=== PATIENT | female | born 1945 ===

== ENCOUNTER 2017-05-10 09:25 | Emergency (ER) | payer MEDICARE ==
[2017-05-10 09:55] VITALS: BMI 23.3
[2017-05-10 10:00] VITALS: BP 114/67; PULSE 85; RESP 18; O2SAT 99
--- NOTE | 2017-05-10 10:08 | ED PDOC ---
HPI: General Adult Time Seen by Provider: 05/10/17 09:31 Chief Complaint (Nursing): Anxiety Chief Complaint (Provider): Anxiety History Per: Patient History/Exam Limitations: no limitations Onset/Duration Of Symptoms: Days Have you had recent travel within the past 21 days to any of the following countries: [place], [place], [place] or [place]?: No Current Symptoms Are (Timing): Still Present Additional Complaint(s): Deann Lam, a 72 year old female, presents to the Ed with difficulty sleeping. Patient reports that she is anxious and unable to sleep due to stress of taking care of her mother who is on hospice. She reports that she visited her PMD (Dr. Solitario) yesterday and was prescribed celexa but he refused to give her sleep medication because she needed to have an EKG done and her TSH levels tested. She was given rx for these tests and came to the ED to get the tests done in hopes that she could get sleeping pills faster. Patient denies HI /SI and reports that she does not want to speak to psych today because she has follow-up on Sunday. Son in law is at bedside and agrees with this plan. Patient reports that she has no somatic complaints. Denies chest pains, palpitations and weight loss. PMD: Dr. Solitario Past Medical History Reviewed: Historical Data, Nursing Documentation, Vital Signs Vital Signs: Last Vital Signs Temp Pulse 85 05/10/17 09:53 Resp 18 05/10/17 09:53 BP 114/67 05/10/17 09:53 Pulse Ox 99 05/10/17 11:38 - Medical History PMH: Anxiety, Arthritis, GERD - Surgical History Surgical History: Cholecystectomy, (x2) - Family History Family History: States: Unknown Family Hx - Home Medications Home Medications: Ambulatory Orders Medication Instructions Recorded Ciprofloxacin HCl [Cipro] 500 mg PO BID #20 tab 12/20/14 Cephalexin [Keflex] 1 tab PO TID #15 capsule 11/28/16 Phenazopyridine HCl [Pyridium] 1 tab PO BID PRN #6 tablet 11/28/16 - Allergies Allergies/Adverse Reactions: Allergies Allergy/AdvReac Type Severity Reaction Status Date / Time Sulfa (Sulfonamide Allergy RASH Verified 11/28/16 14:37 Antibiotics) Review of Systems Constitutional: Negative for: Fever, Weakness, Malaise, Weight loss Cardiovascular: Negative for: Chest Pain, Palpitations, Light Headedness Respiratory: Negative for: Cough, Shortness of Breath, SOB with Exertion, Wheezing Gastrointestinal: Negative for: Nausea, Vomiting, Abdominal Pain, Diarrhea, Constipation Genitourinary Female: Negative for: Dysuria Skin: Negative for: Rash Neurological: Negative for: Weakness, Numbness, Altered Mental Status, Headache Psych: Positive for: Anxiety. Negative for: Depression, Suicidal ideation ( Denies HI/SI ideations.) Physical Exam - Reviewed Nursing Documentation Reviewed: Yes Vital Signs Reviewed: Yes - Physical Exam Appears: Positive for: Non-toxic, No Acute Distress Head Exam: Positive for: ATRAUMATIC, NORMAL INSPECTION, NORMOCEPHALIC Skin: Positive for: Normal Color, Warm, Dry Eye Exam: Positive for: Normal appearance, EOMI, PERRL ENT: Positive for: Normal ENT Inspection (Thyroid exam normal.) Neck: Positive for: Normal, Painless ROM, Supple Cardiovascular/Chest: Positive for: Regular Rate, Rhythm, Chest Non Tender. Negative for: Tachycardia Respiratory: Positive for: Normal Breath Sounds. Negative for: Rales, Rhonchi, Stridor, Wheezing, Respiratory Distress Gastrointestinal/Abdominal: Positive for: Normal Exam, Bowel Sounds, Soft. Negative for: Tenderness, Mass, Distended, Guarding, Rebound Back: Positive for: Normal Inspection Extremity: Positive for: Normal ROM. Negative for: Tenderness, Deformity, Swelling Neurologic/Psych: Positive for: Alert, Oriented, Gait (steady) - Laboratory Results Result Diagrams: 05/10/17 10:14 05/10/17 10:14 - ECG O2 Sat by Pulse Oximetry: 99 (RA) Pulse Ox Interpretation: Normal Medical Decision Making Medical Decision Makin Initial Impression: 72 year old female presenting with difficulty sleeping and anxiety. Patient has psych follow-up and is requesting blood work requested by PMD Initial Plan: * EKG * Comp Metabolic Panel * Free T4 * Thyroid stimulant,CBC * Reevaluation 11:09 EKG shows NSR at 79bpm with normal intervals and no ST changes. CBC, CMP and TSH/T4 WNL. Patient was given copies to follow-up with Dr. Solitario in am. I spoke to family at length that I was uncomfortable prescribing sleep medication for patient from ER. I instructed patient and patient's family on importance of healthy sleep habits such as sleep routine. Patient again denies HI and SI. Patient reports that she cannot get follow-up in clinic before 2 weeks. I called scheduling line and arranged follow-up with patient in clinic on at 1pm. Scribe Attestation Documented by Krystal Boyle acting as a scribe for Collette Lindo MD. Provider Attestation: All medical record entries made by the Scribe were at my direction and personally dictated by me. I have reviewed the chart and agree that the record accurately reflects my personal performance of the history, physical exam, medical decision making, and the department course for this patient. I have also personally directed, reviewed, and agree with the discharge instructions and disposition. Disposition - Clinical Impression Clinical Impression: Anxiety, Insomnia - Disposition Disposition: Routine/Home Disposition Time: 09:58 Condition: GOOD Additional Instructions: Follow up with Dr. Solitario on at 1pm. Follow up with psychologist as previously arranged. Return to ED if condition worsens. Instructions: Insomnia (ED), Anxiety (ED) Print Language: [place]
[2017-05-10 10:18] LABS: BASO # 0.1 K/uL (0.0-0.2); BASO % 0.7 % (0.0-2.0); EOS % 0.2 % (0.0-4.0); HEMATOCRIT 41.4 % (34.0-47.0); LYMPH # 1.8 K/uL (1.0-4.3); LYMPH % 23.3 % (20.0-40.0); MEAN CELL VOLUME 86.8 fl (81.0-99.0); MEAN CORPUSCULAR HEMOGLOBIN 29.9 pg (27.0-31.0); MEAN CORPUSCULAR HGB CONC 34.5 g/dL (33.0-37.0); MEAN PLATELET VOLUME 6.6 fl (7.2-11.7); MONO # 0.6 K/uL (0.0-0.8); MONO % 7.9 % (0.0-10.0); NEUT # 5.1 K/uL (1.8-7.0); NEUT % 67.9 % (50.0-75.0); NRBC % 0.1 % (0.0-0.0); RED CELL DISTRIBUTION WIDTH 13.8 % (11.5-14.5); WHITE BLOOD COUNT 7.5 K/uL (4.8-10.8)
[2017-05-10 10:34] LABS: ALB/GLOB RATIO 1.6 (1.0-2.1); ALKALINE PHOSPHATASE 69 U/L (38-126); ALT/SGPT 35 U/L (9-52); AST/SGOT 27 U/L (14-36); BILIRUBIN,TOTAL 0.7 mg/dl (0.2-1.3); BLOOD UREA NITROGEN 11 mg/dl (7-17); CALCIUM 9.6 mg/dL (8.4-10.2); CARBON DIOXIDE 22 mmol/L (22-30); CHLORIDE 103 mmol/L (98-107); GFR AFRICAN-AMERICAN > 60; GLUCOSE,RANDOM 162 mg/dL (65-105); POTASSIUM 3.7 MMOL/L (3.6-5.0); SODIUM 138 mmol/l (132-148); TOTAL PROTEIN 7.5 G/DL (6.3-8.2)
[2017-05-10 11:04] LABS: THYROID STIMULATING HORMONE 0.95 mIU/ML (0.46-4.68)
[2017-05-10 12:29] VITALS: TEMP 97.9
--- NOTE | 2017-05-10 23:42 | CARD ---
APPROVED REPORT EKG Measurement Heart [id number] <Conclusion> Normal sinus rhythm Normal ECG
== END 2017-05-10 11:42 | disposition home or self-care (01) ==
LOC: H.ER 09:25
DX: F41.9 Anxiety disorder, unspecified (principal); G47.00 Insomnia, unspecified; K21.9 Gastro-esophageal reflux disease without esophagitis

== ENCOUNTER 2017-07-24 08:26 | Day surgery (SDC) | payer MEDICARE ==
[2017-07-24] MEDS ORDERED: Lactated Ringer's 500 ML IV ONE (09:30)
[2017-07-24] MEDS ORDERED: Propofol 10 mg/ml Inj (20 ML) ONE (10:28)
[2017-07-24] MEDS ORDERED: Midazolam 2 MG/2 ML VIAL ONE (10:28)
[2017-07-24 10:55] VITALS: O2SAT 100
[2017-07-24 11:12] VITALS: BP 131/67; PULSE 62; RESP 15; TEMP 98.2
== END 2017-07-24 11:22 | disposition home or self-care (01) ==
LOC: H.ENDO 08:26
PROVIDERS: ATTEND Internal Medicine Gastroenterology
DX: Z12.11 Encounter for screening for malignant neoplasm of colon (principal); K57.30 Diverticulosis of large intestine without perforation or abscess without bleeding; K64.0 First degree hemorrhoids
CPT/HCPCS: 45378; J2001; J2250; J2704; J7120